=== PATIENT | male | born 1965 | race Caucasian/White ===

== ENCOUNTER 2018-01-30 11:07 | Observation (INO) | payer OTHER ==
--- NOTE | 2018-01-30 12:32 | PDOC ---
History of Present Illness - General Chief Complaint: Nausea/Vomiting Stated Complaint: NAUSEA, FATIGUE, BLOOD IN URINE Time Seen by Provider: 01/30/18 12:32 - History of Present Illness Initial Comments: 01/30/18 12:34 Mr. Villagran is a 52 yo male w/ no pmh who presents for evaluation of single episode of epigastric pain with concurrent shortness of breath on Monday that was relieved by vomiting. Patient reports he has been feeling "lazy" or weak since this occured and subsequently noticed his urine has turned brown. This prompted him to come in for evaluation; he has had no further nausea or vomiting. The patient denies chest pain, headache and dizziness. Denies fever, chills, diarrhea and constipation. Denies dysuria, frequency, and urgency. Allergies: NKDA Past History - Past Medical History Allergies/Adverse Reactions: Allergies Allergy/AdvReac Type Severity Reaction Status Date / Time No Known Allergies Allergy Verified 01/30/18 11:28 Home Medications: Ambulatory Orders NK [No Known Home Medication] 01/30/18 - Suicide/Smoking/Psychosocial Hx Smoking History: Never smoked Hx Alcohol Use: No Drug/Substance Use Hx: No Review of Systems - Review of Systems Comments:: 01/30/18 12:34 GENERAL/CONSTITUTIONAL: No fever or chills. No weakness. HEAD, EYES, EARS, NOSE AND THROAT: No change in vision. No ear pain or discharge. No sore throat. CARDIOVASCULAR: No chest pain or shortness of breath RESPIRATORY: No cough, wheezing, or hemoptysis. GASTROINTESTINAL:+Single episode of pain with nausea/vomiting as described. No diarrhea or constipation. GENITOURINARY: +Brown urine x1 day w/out dysuria, frequency, or other changes. MUSCULOSKELETAL: No joint or muscle swelling or pain. No neck or back pain. SKIN: No rash NEUROLOGIC: No headache, vertigo, loss of consciousness, or change in strength/ sensation. ENDOCRINE: No increased thirst. No abnormal weight change HEMATOLOGIC/LYMPHATIC: No anemia, easy bleeding, or history of blood clots. ALLERGIC/IMMUNOLOGIC: No hives or skin allergy. *Physical Exam - Vital Signs Last Vital Signs Temp Pulse Resp BP Pulse Ox 98 F 76 20 122/77 99 01/30/18 11:25 01/30/18 11:25 01/30/18 11:25 01/30/18 11:25 01/30/18 11:25 - Physical Exam Comments: 01/30/18 12:34 GENERAL: Awake, alert, and fully oriented, in no acute distress HEAD: No signs of trauma, normocephalic, atraumatic EYES: +Sclera icteric. PERRLA, EOMI, conjunctiva clear ENT: Auricles normal inspection, hearing grossly normal, nares patent, oropharynx clear without exudates. Moist mucosa NECK: Normal ROM, supple, no lymphadenopathy, JVD, or masses LUNGS: No distress, speaks full sentences, clear to auscultation bilaterally HEART: Regular rate and rhythm, normal S1 and S2, no murmurs, rubs or gallops, peripheral pulses normal and equal bilaterally. ABDOMEN: Soft, nontender, normoactive bowel sounds. No guarding, no rebound. No masses EXTREMITIES: Normal inspection, Normal range of motion, no edema. No clubbing or cyanosis. NEUROLOGICAL: Cranial nerves II through XII grossly intact. Normal speech, normal gait, no focal sensorimotor deficits SKIN: Warm, Dry, normal turgor, no rashes or lesions noted. ED Treatment Course - LABORATORY CBC & Chemistry Diagram: 01/30/18 13:25 01/30/18 13:25 Medical Decision Making - Medical Decision Making 01/30/18 15:38 Mr. Villagran is a 52 yo male w/ pmh as described who presents for evaluation of vomiting with brown urine. Upon repeat interview patient also relating 20 pound unintentional weight loss. Patient sclera icteric w/ elevated liver enzymes as below. US of RUQ negative for acute process; hepatitis panel pending. Will admit patient for further evaluation. Laboratory Results - last 24 hr 01/30/18 01/30/18 01/30/18 13:25 13:25 13:55 WBC 4.6 RBC 4.13 Hgb 13.6 Hct 40.0 MCV 97.0 H MCH 32.8 MCHC 33.9 RDW 13.5 Plt Count 172 MPV 10.1 Absolute Neuts (auto) 2.7 Neutrophils % 59.0 Lymphocytes % 29.5 Monocytes % 8.9 Eosinophils % 2.0 Basophils % 0.6 Nucleated RBC % 0 Sodium 140 Potassium 3.8 Chloride 105 Carbon Dioxide 29 Anion Gap 6 L BUN 20 H Creatinine 0.8 Creat Clearance w eGFR > 60 Random Glucose 97 Calcium 8.6 Total Bilirubin 2.6 H AST 578 H ALT 1101 H Alkaline Phosphatase 338 H Creatine Kinase Total Protein 8.1 Albumin 3.7 Lipase 92 Urine Color [place]ty Urine Appearance Clear Urine pH 5.0 Ur Specific [place] 1.032 Urine Protein Negative Urine Glucose (UA) Negative Urine Ketones Negative Urine Blood Negative Urine Nitrite Negative Urine Bilirubin 4.0 Urine Urobilinogen 4.0 e.u/dl Ur Leukocyte Esterase Negative 01/30/18 14:13 WBC RBC Hgb Hct MCV MCH MCHC RDW Plt Count MPV Absolute Neuts (auto) Neutrophils % Lymphocytes % Monocytes % Eosinophils % Basophils % Nucleated RBC % Sodium Potassium Chloride Carbon Dioxide Anion Gap BUN Creatinine Creat Clearance w eGFR Random Glucose Calcium Total Bilirubin AST ALT Alkaline Phosphatase Creatine Kinase 45 Total Protein Albumin Lipase Urine Color Urine Appearance Urine pH Ur Specific [place] Urine Protein Urine Glucose (UA) Urine Ketones Urine Blood Urine Nitrite Urine Bilirubin Urine Urobilinogen Ur Leukocyte Esterase *DC/Admit/Observation/Transfer Diagnosis at time of Disposition: Jaundice, Elevated liver enzymes - Discharge Dispostion Decision to Admit order: Yes - Referrals - Patient Instructions - Post Discharge Activity
[2018-01-30] MEDS ORDERED: SODIUM CHLORIDE 1,000 ML IV STA (13:04)
[2018-01-30 13:42] LABS: BASO % 0.6 % (0-2.0); HEMOGLOBIN 13.6 GM/dL (11.7-16.9); LYMPH % 29.5 % (8-40); MCH 32.8 pg (25.7-33.7); MCHC 33.9 g/dl (32.0-35.9); MEAN PLT VOLUME 10.1 fl (7.5-11.1); MONO % 8.9 % (3.8-10.2); PLATELET COUNT 172 K/MM3 (134-434); RBC 4.13 M/mm3 (4.00-5.60); RDW 13.5 % (11.9-15.9); WHITE BLOOD COUNT 4.6 K/mm3 (4.0-10.0)
[2018-01-30 14:07] LABS: URINE APPEARANCE CLEAR; URINE COLOR AMBER; URINE GLUCOSE (UA) NEGATIVE (NEGATIVE); URINE KETONE NEGATIVE (NEGATIVE); URINE LEUK ESTERASE NEGATIVE (NEGATIVE); URINE NITRITE NEGATIVE (NEGATIVE); URINE PROTEIN NEGATIVE (NEGATIVE); URINE UROBILINOGEN 4.0 E.U/dl mg/dL (0.2-1.0)
[2018-01-30 14:11] LABS: ALBUMIN 3.7 g/dl (3.4-5.0); ANION GAP 6 (8-16); BILIRUBIN,TOTAL 2.6 mg/dL (0.2-1.0); BLOOD UREA NITROGEN 20 mg/dL (7-18); CALCIUM 8.6 mg/dL (8.5-10.1); CHLORIDE 105 mmol/L (98-107); CO2 29 mmol/L (21-32); CREATININE 0.8 mg/dL (0.7-1.3); GLUCOSE,RANDOM 97 mg/dL (74-106); LIPASE 92 U/L (73-393); POTASSIUM 3.8 mmol/L (3.5-5.1); SODIUM 140 mmol/L (136-145); TOT PROT 8.1 g/dl (6.4-8.2)
[2018-01-30 14:15] LABS: SGOT/AST 578 U/L (15-37)
[2018-01-30 14:16] LABS: ALK PHOS 338 U/L (45-117)
[2018-01-30 14:17] LABS: SGPT/ALT 1101 U/L (12-78)
--- NOTE | 2018-01-30 14:36 | PDOC ---
Attending Attestation - ED Attending Attestation I have performed the following: I have examined & evaluated the patient, The case was reviewed & discussed with the resident, I agree w/resident's findings & plan - HPI HPI: 01/30/18 16:06 The patient is a 52 year old male, with no significant PMH, on Methadone (60 mg) , who presents to the emergency department with 2 days tea colored urine. The patient states that Monday approx. 1 hour after waking up he experienced epigastric pain and shortness of breath. The patient states he then became nausea and vomited 1x (non bloody, non bilious) which resolved the epigastric abdominal pain. The patient states since 2 days ago he has been continuing to experience the dark colored urine. The patient also reports he has lost approx. 25 lbs in the past 2 months for which he states he has been following a strict diet. The patient denies chest pain, headache and dizziness. Denies fever, chills, diarrhea and constipation. Denies dysuria, frequency, urgency. Allergies: NKA - Physicial Exam PE: 01/30/18 16:07 General: Well appearing, awake and alert, NAD. HEENT: PERRL, EOMI, scleral icterus, moist mucus membranes, no oral lesions, + jaundice over frenulum Neck: neck supple, FROM, no JVD, LAD or masses Lungs: CTAB, normal and even respirations, no respiratory distress Heart: RRR, no murmurs, 2+ peripheral pulses throughout, no peripheral edema Abdomen: soft, NTND, no peritoneal signs. No CVAT Back: nontender, normal inspection and ROM MSK: no edema, MANDUJANO x4, ROM intact. No clubbing or cyanosis. normal bulk and tone. Neuro: alert, oriented appropriately; no focal neurologic deficits. SILT, 5/5 distal and prox strength in all extrem. Skin: warm and well perfused, cap refill <2 sec, dark skin color, no lesions or rash <Jesu Roland - Last Filed: 01/30/18 16:06> - Resident Resident Name: Wei Laura - Medical Decision Making 01/30/18 14:33 52 YOM with jaundice, epigastric pain n/v and tea colored urine x 2 days. 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 no ETOH use or trauma. Vital signs stable and wnl. DDx. asc cholangitis, intra abdominal pass, choledocholithiasis, cholelithiasis , cholecystitis, panc mass/obstructing jaundice. rhabdomyolysis. electrolyte/ metabolic derangements. Labs including CMP and CBC, hepatitis panel. +transaminitis with ALT>AST. urine with elevated urobilinogen levels, no signs of infection. CK normal, so doubt rhabdomyolysis RUQ sono to eval for obstruction and source of jaundice, which is neg for stones or biliary pathology or obstruction. tox panel for tylenol and salicylate levels ordered and pending. hepatitis panel also pending to r/o infectious source of liver inflammation admit for transaminitis and jaundice, otherwise remains well appearing, asymptomatic. 01/30/18 17:06 <Elham Kent - Last Filed: 01/30/18 17:12> Attestations - Attestations 01/30/18 16:07 Documentation prepared by Jesu Roland, acting as medical director/head team physician for Elham Kent MD. <Jesu Roland - Last Filed: 01/30/18 16:06> - Attestations Physician Attestation: 01/30/18 17:09 I reviewed the scribe and residents documented note, including history physical and plan as dictated. Note is prepared under my direction and supervision and agree with the note in its entirety. <Elham Kent - Last Filed: 01/30/18 17:12>
[2018-01-30 17:47] LABS: INR 1.14 (0.82-1.09); PROTHROMBIN TIME (PATIENT) 12.9 SEC (9.7-13.0)
[2018-01-30] MEDS ORDERED: SODIUM CHLORIDE 1,000 ML IV SCH (18:15)
--- NOTE | 2018-01-30 19:28 | HP ---
CHIEF COMPLAINT: dark urine since Monday PCP: Dr. 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 Upon first episode of dark urine on Monday, pt was complaining of localized epigastric pain with 1 episode of nonbloody vomiting. He admits to never having these symptoms before. Since that time, his dark urine persisted, but denies any recurring episodes of epigastric pain. He also denies fever/chills, nausea, headaches/dizziness, abnormal bleeding/bruising, skin changes, vision changes, or recent sickness. He admits to intentional weight loss of 25 lbs over the past 2.5 months. ER course was notable for: (1) Abd U/S: (-) for gallstones, Hep panel/Acetaminophen, Salicylate panel pending (2) AST/ALT: 578/1101 (3) CXR, ECG ordered Recent Travel: Denies recent travel PAST MEDICAL HISTORY: heroine addiction currently being treated at Methadone (60 mg) clinic in the [place] +hx of Hepatitis B, treated 8 years ago PAST SURGICAL HISTORY: Denies past surgical history Social History: Smoking: Admits to smoking cigars Alcohol: Denies alcohol use Drugs: Hx of heroine abuse Pt's work involves fixing houses. He is currently living with his mother at home. He has 1 son (32). Family History: Father, 78, HTN Mother, 78, Heart disease Allergies No Known Allergies Allergy (Verified 01/30/18 11:28) HOME MEDICATIONS: Home Medications Medication Instructions Recorded NK [No Known Home Medication] 01/30/18 REVIEW OF SYSTEMS CONSTITUTIONAL: Denies fever/chills, nausea/vomiting, admits to intentional weight loss of 25 lbs, denies headaches/dizziness CARDIOVASCULAR: Denies chest pain, lightheadedness, irregular heart rate RESPIRATORY: Denies shortness of breath, cough GASTROINTESTINAL: Admits to constipation, Denies diarrhea, abdominal pain or masses GENITOURINARY: Admits to dark urine, Denies pain during urination, urinary frequency MUSCULOSKELETAL: Admits to pain in knees, denies swelling in extremities SKIN: Denies skin rash, lesions HEMATOLOGIC/IMMUNOLOGIC: Denies easy bleeding/bruising, recent infection NEUROLOGIC: Denies dizziness, bladder or bowel incontinence PHYSICAL EXAMINATION Vital Signs - 24 hr 01/30/18 11:25 Temperature 98 F Pulse Rate 76 Respiratory 20 Rate Blood Pressure 122/77 O2 Sat by Pulse 99 Oximetry (%) GENERAL: NAD. AAOx3. HEENT: AT/NC. Non-icteric sclera. Neck supple, no thyromegaly/LAD. LUNGS: CTA B/L. No wheezes/rhonchi/rales appreciated. Symmetric chest rise. HEART: RRR. Normal S1, S2. No murmurs, rubs, gallops appreciated. ABDOMEN: Soft NT/ND. normoactive BS in all 4 Q's. No masses or abdominal bruits noted. MUSCULOSKELETAL: Limited ROM in L arm. 5/5 muscle strength in U/L B/L extremities. UPPER EXTREMITIES: 2+ pulses, warm, well-perfused. No cyanosis. No clubbing. No peripheral edema. LOWER EXTREMITIES: 2+ pulses, warm, well-perfused. No calf tenderness. No peripheral edema. NEUROLOGICAL: Normal Speech, normal gait. PSYCHIATRIC: Cooperative. Good eye contact. Appropriate mood and affect. SKIN: warm, dry. No rashes or lesions noted. Laboratory Results - last 24 hr 01/30/18 01/30/18 01/30/18 13:25 13:25 13:55 WBC 4.6 RBC 4.13 Hgb 13.6 Hct 40.0 MCV 97.0 H MCH 32.8 MCHC 33.9 RDW 13.5 Plt Count 172 MPV 10.1 Absolute Neuts (auto) 2.7 Neutrophils % 59.0 Lymphocytes % 29.5 Monocytes % 8.9 Eosinophils % 2.0 Basophils % 0.6 Nucleated RBC % 0 PT with INR INR Sodium 140 Potassium 3.8 Chloride 105 Carbon Dioxide 29 Anion Gap 6 L BUN 20 H Creatinine 0.8 Creat Clearance w eGFR > 60 Random Glucose 97 Calcium 8.6 Total Bilirubin 2.6 H Direct Bilirubin AST 578 H ALT 1101 H Alkaline Phosphatase 338 H Creatine Kinase Total Protein 8.1 Albumin 3.7 Lipase 92 Urine Color [place] Urine Appearance Clear Urine pH 5.0 Ur Specific [place] 1.032 Urine Protein Negative Urine Glucose (UA) Negative Urine Ketones Negative Urine Blood Negative Urine Nitrite Negative Urine Bilirubin 4.0 Urine Urobilinogen 4.0 e.u/dl Ur Leukocyte Esterase Negative 01/30/18 01/30/18 01/30/18 14:13 17:14 17:14 WBC RBC Hgb Hct MCV MCH MCHC RDW Plt Count MPV Absolute Neuts (auto) Neutrophils % Lymphocytes % Monocytes % Eosinophils % Basophils % Nucleated RBC % PT with INR 12.90 INR 1.14 Sodium Potassium Chloride Carbon Dioxide Anion Gap BUN Creatinine Creat Clearance w eGFR Random Glucose Calcium Total Bilirubin Direct Bilirubin 1.8 H AST ALT Alkaline Phosphatase Creatine Kinase 45 Total Protein Albumin Lipase Urine Color Urine Appearance Urine pH Ur Specific [place] Urine Protein Urine Glucose (UA) Urine Ketones Urine Blood Urine Nitrite Urine Bilirubin Urine Urobilinogen Ur Leukocyte Esterase Abd U/S: Contracted GB w/o evidence of calculi. No evidence of biliary ductal dilatation or acute pathology. U/A: +carline urine ASSESSMENT/PLAN: 52M w/ pmhx heroine abuse (currently being treated at a Methadone clinic) presents today with tea-colored urine being admitted for workup of transaminitis. #transaminitis 2/2 possible methadone hepatotoxicity vs cholelithiasis vs hepatitis - ALT 578, ALT 1101, Alk Phos 338 - Pt admits going to a methadone clinic for the past 9 years; possibly liver injury due to long-term tx of methadone - Abd U/S negative for evidence of gallstone in GB w/ -Teague sign, -abd pain, unlikely cholelithiasis; F/u GI consult for further workup and imaging if needed - hepatic panel pending given hx of Hepatitis B - Acetaminophen and salicylate panel pending - CXR ordered by ED to rule out infectious source - check CMP and GGT in AM #hyperbilirubinemia 2/2 possible hepatic or biliary obstruction; Pt clinically asymptomatic - f/u GI consult for further workup - recheck T Bili and Direct Bili in AM #DVT ppx - Heparin 5000U SQ Q8 FEN - NS 1000cc 1 bag - recheck electrolytes in AM dispo - monitor on obs Visit type - Emergency Visit Emergency Visit: Yes ED Registration Date: 01/30/18 Care time: The patient presented to the Emergency Department on the above date and was hospitalized for further evaluation of their emergent condition. - New Patient This patient is new to me today: Yes Date on this admission: 01/30/18 - Critical Care Critical Care patient: No Hospitalist Screening - Colonoscopy Questionnaire Colonoscopy Questionnaire: Colonoscopy Questionnaire - Patient: 50 - 75 years old and never had a screening colonoscopy: Unknown History of colon or rectal polyps, or CA: Unknown History of IBD, Crohn's disease or UC: Unknown History of abdominal radiation therapy as a child: Unknown - Relative: 1 with colon or rectal CA, or polyps at age 60 or younger: Unknown Colon or rectal CA diagnosed at age 45 or younger: Unknown Multiple relatives with colon or rectal CA: Unknown - Outcome: Screening Result: Negative Screen
[2018-01-30 21:38] LABS: ACETAMINOPHEN <2.0 ug/mL; SALICYLATE <1.7 mg/dL
--- NOTE | 2018-01-30 21:41 | PN ---
Teaching Attending Note Name of Resident: Marleny Brooks ATTENDING PHYSICIAN STATEMENT I saw and evaluated the patient. I reviewed the resident's note and discussed the case with the resident. I agree with the resident's findings and plan as documented. SUBJECTIVE: Patient is comfortbale , denies having any pain. His urine is tea colored as per patient . Denies any drinking. OBJECTIVE: Vital Signs Temperature 98 F 01/30/18 11:25 Pulse Rate 76 01/30/18 11:25 Respiratory Rate 20 01/30/18 11:25 Blood Pressure 122/77 01/30/18 11:25 O2 Sat by Pulse Oximetry (%) 99 01/30/18 11:25 CBCD WBC 4.6 K/mm3 (4.0-10.0) 01/30/18 13:25 RBC 4.13 M/mm3 (4.00-5.60) 01/30/18 13:25 Hgb 13.6 GM/dL (11.7-16.9) 01/30/18 13:25 Hct 40.0 % (35.4-49) 01/30/18 13:25 MCV 97.0 fl (80-96) H 01/30/18 13:25 MCHC 33.9 g/dl (32.0-35.9) 01/30/18 13:25 RDW 13.5 % (11.9-15.9) 01/30/18 13:25 Plt Count 172 K/MM3 (134-434) 01/30/18 13:25 MPV 10.1 fl (7.5-11.1) 01/30/18 13:25 CMP Sodium 140 mmol/L (136-145) 01/30/18 13:25 Potassium 3.8 mmol/L (3.5-5.1) 01/30/18 13:25 Chloride 105 mmol/L (98-107) 01/30/18 13:25 Carbon Dioxide 29 mmol/L (21-32) 01/30/18 13:25 Anion Gap 6 (8-16) L 01/30/18 13:25 BUN 20 mg/dL (7-18) H 01/30/18 13:25 Creatinine 0.8 mg/dL (0.7-1.3) 01/30/18 13:25 Creat Clearance w eGFR > 60 (>60) 01/30/18 13:25 Random Glucose 97 mg/dL (74-106) 01/30/18 13:25 Calcium 8.6 mg/dL (8.5-10.1) 01/30/18 13:25 Total Bilirubin 2.6 mg/dL (0.2-1.0) H 01/30/18 13:25 AST 578 U/L (15-37) H 01/30/18 13:25 ALT 1101 U/L (12-78) H 01/30/18 13:25 Alkaline Phosphatase 338 U/L (45-117) H 01/30/18 13:25 Total Protein 8.1 g/dl (6.4-8.2) 01/30/18 13:25 Albumin 3.7 g/dl (3.4-5.0) 01/30/18 13:25 CARDIAC ENZYMES Creatine Kinase 45 IU/L (39-308) 01/30/18 14:13 Current Medications Generic Name Dose Route Start Last Admin Trade Name Freq PRN Reason Stop Dose Admin Heparin Sodium (Porcine) 5,000 unit 01/31/18 02:00 Heparin - SQ Q8H-IV ANDRE Sodium Chloride 1,000 mls @ 100 mls/hr 01/30/18 18:15 01/30/18 19:15 Normal Saline - IV 01/31/18 04:14 100 mls/hr ASDIR ANDRE Administration Home Medications Medication Instructions Recorded NK [No Known Home Medication] 01/30/18 PE: No abdominal pain positive for Jaundice rest of PE per the resident's note ASSESSMENT AND PLAN: 52yo male with pmhx of heroine abuse goes to Methadone clinic presents today with tea-colored urine due to Hyperbilirubinia #Acute transaminitis with elevated bilirubin can't r/o hepatitis acute , possible methadone hepatotoxicity vs cholelithiasis, will also check aspirin and tylenol level - ALT 578, ALT 1101, Alk Phos 338 , Abd U/S negative for evidence of gallstone in GB. GI consult appreciated, hepatic panel pending given hx of Hepatitis B check GGT and trend the levels. #DVT ppx: Heparin 5000U SQ Q8 Obs
--- NOTE | 2018-01-30 22:06 | CON.GI ---
Consult Consult Specialty:: GI Referred by:: Hospitalist Service Reason for Consultation:: Abnormal liver chemistries - History of Present Illness Chief Complaint: Abdominal pain History of Present Illness: 52M admitted fpor evaluation of abdominal pain and dark urine. he states that monday morning he herrera a [employer] and soon after developed intesnse epigastric pain. There was associated nausea. He began belching and vpomited, alleviating the pain somewhat. the pain improved yesterday however his urine remained dark, prompting his ER. Triage vitals revealed him to be tachycardic, afebrile and hypertensive. He was noted to have an elevated WBC as well as leevated transaminases / ALP and bilirubin. Abdominal US revealed a contracted gallbladder without evidence of biliary tract disease and hepatopedal flow through the main portal vein. He denies similar episodes in the past. He believes that he was treated for hepatitis B 8 years ago and otherwise denies other known liver disease, family history of liver disease or alcohol use. He denies fevers/chills. he has never had a colonoscopy. - History Source History Provided By: Patient, Medical Record Limitations to Obtaining History: No Limitations - Past Medical History Hepatobiliary: Yes: Hepatitis B (? treated 2009) - Past Surgical History Additional Surgical History: Denies - Alcohol/Substance Use Hx Alcohol Use: No History of Substance Use: reports: Heroin (Intranasal heroin, no IVDA) - Smoking History Smoking history: Never smoked Have you smoked in the past 12 months: No - Social History Usual Living Arrangement: Alone ADL: Independent Occupation: Rn Tele Place of : [facility] History of Recent Travel: No Home Medications - Allergies Allergies/Adverse Reactions: Allergies Allergy/AdvReac Type Severity Reaction Status Date / Time No Known Allergies Allergy Verified 01/30/18 11:28 - Home Medications Home Medications: Ambulatory Orders NK [No Known Home Medication] 01/30/18 Family Disease History - Family Disease History Family Disease History: Other: Father (Alive: healthy), Mother (Alive: multiple medical problems), Brother (1 from overdose, 2 alive and healthy), Son (1, healthy) Other Family History: No family history of colorectal cancer or other GI malignancy. no family history of liver disease Review of Systems - Review of Systems Constitutional: denies: Chills Cardiovascular: denies: Chest Pain Respiratory: denies: SOB Gastrointestinal: reports: Abdominal Pain, Indigestion, Nausea, Vomiting. denies: Constipation, Diarrhea Physical Exam-GI Vital Signs: Vital Signs Temperature 98 F 01/30/18 11:25 Pulse Rate 76 01/30/18 11:25 Respiratory Rate 20 01/30/18 11:25 Blood Pressure 122/77 01/30/18 11:25 O2 Sat by Pulse Oximetry (%) 99 01/30/18 11:25 Constitutional: Yes: Calm Eyes: No: Sclera Icterus Cardiovascular: Yes: Regular Rate and Rhythm. No: Murmur Respiratory: Yes: CTA Bilaterally Gastrointestinal Inspection: No: Distention ...Auscultate: Yes: Normoactive Bowel Sounds ...Palpate: No: Hepatomegaly, Splenomegaly, Tenderness ...Percussion: No: Tympanitic Edema: No (No LE edema) Neurological: Yes: Alert, Oriented Labs: CBC, BMP 01/30/18 13:25 01/30/18 13:25 INR, PTT INR 1.14 (0.82-1.09) 01/30/18 17:14 Imaging - Results Ultrasound: Report Reviewed Problem List - Problems (1) Elevated liver enzymes Assessment/Plan: Post prandial epigastric pain in conjunction with mixed hepatocellular / cholestatic liver dysfunction favors biliary source such as passed or retained CBD stone/sludge. Plan would be as follows: NPO IV Hydration Empiric antibiotics for now: Ordered zosyn Ordered triple phase MRI of the abdomen with and without contrast with MRCP for further evaluation of the liver and bilary tract Monitor LFTs / coags Acute hepatitis panel is pending Discussed the possibility of a need for ERCP with Mr. Villagran to further evaluate biliary tract. Discussed potential risks of the procedure like but not limited to bleeding, perforation requiring surgery to repair, infection, sedation medication effects, pancreatitis, all of which could be potentially life threatening. he has agreed to the procedure if it was felt to be medically necessary Code(s): R74.8 - ABNORMAL LEVELS OF OTHER SERUM ENZYMES
[2018-01-30] MEDS ORDERED: PIPERACILLIN/TAZOB 3.375 GM 3.375 GM in DEXTROSE 5%-WATER - 50 ML IVPB SCH (22:15)
[2018-01-30] MEDS ORDERED: PIPERACILLIN/TAZOB 3.375 GM 3.375 GM/50 ML BAG IVPB ONE (22:35)
[2018-01-30] MEDS: PIPERACILLIN/TAZOB 3.375 GM 3.375 GM in DEXTROSE 5%-WATER - 50 ML IVPB SCH (22:45)
[2018-01-31 01:22] VITALS: BMI 27.0
[2018-01-31] MEDS: HEPARIN NA (PORCINE) 5,000 UNITS/ML 1ML VIAL SQ SCH ×4 (03:00→18:08)
[2018-01-31] MEDS ORDERED: DEXTROSE 5%-WATER - 50 ML IVPB ONE ×2 (03:37→09:46)
[2018-01-31] MEDS ORDERED: PIPERACILLIN/TAZOBACTAM 3.375 GM VIAL IVPB ONE ×3 (03:37→17:55)
[2018-01-31] MEDS: PIPERACILLIN/TAZOB 3.375 GM 3.375 GM in DEXTROSE 5%-WATER - 50 ML IVPB SCH ×3 (03:46→18:04)
[2018-01-31 06:16] LABS: HEP.C VIRUS AB 0.3 s/co ratio (0.0-0.9)
[2018-01-31 07:56] LABS: CHLORIDE 106 mmol/L (98-107); GAMMA GLUTAMYL TRANSPEPTIDASE 303 U/L (5-85); POTASSIUM 4.3 mmol/L (3.5-5.1); SODIUM 140 mmol/L (136-145)
[2018-01-31 07:57] LABS: BASO % 0.4 % (0-2.0); EOS % 2.7 % (0-4.5); HEMATOCRIT 34.3 % (35.4-49); HEMOGLOBIN 11.8 GM/dL (11.7-16.9); LYMPH % 27.7 % (8-40); MCH 33.3 pg (25.7-33.7); MCHC 34.4 g/dl (32.0-35.9); MEAN CELL VOLUME 96.8 fl (80-96); MEAN PLT VOLUME 10.2 fl (7.5-11.1); NEUT % 57.2 % (42.8-82.8); PLATELET COUNT 137 K/MM3 (134-434); RBC 3.55 M/mm3 (4.00-5.60); RDW 13.5 % (11.9-15.9); WHITE BLOOD COUNT 4.5 K/mm3 (4.0-10.0)
[2018-01-31 08:05] LABS: ALBUMIN 3.1 g/dl (3.4-5.0); ALK PHOS 261 U/L (45-117); ANION GAP 5 (8-16); BILIRUBIN,DIRECT 1.3 mg/dL (0.0-0.2); BILIRUBIN,TOTAL 1.4 mg/dL (0.2-1.0); BLOOD UREA NITROGEN 14 mg/dL (7-18); CALCIUM 8.5 mg/dL (8.5-10.1); CO2 29 mmol/L (21-32); CREATININE 0.8 mg/dL (0.7-1.3); GLUCOSE,RANDOM 91 mg/dL (74-106); MAGNESIUM 1.9 mg/dL (1.8-2.4); PHOSPHOROUS 3.5 mg/dL (2.5-4.9); SGOT/AST 269 U/L (15-37); TOT PROT 6.7 g/dl (6.4-8.2)
[2018-01-31 08:18] LABS: SGPT/ALT 724 U/L (12-78)
--- NOTE | 2018-01-31 08:23 | PN ---
Progress Note (short form) - Note Progress Note: ID Full note dictated Selected Entries 01/31/18 05:58 Temperature 98.4 F Pulse Rate 56 L Respiratory 20 Rate Blood Pressure 139/79 Laboratory Tests 01/30/18 01/30/18 01/31/18 13:25 14:13 06:30 WBC 4.6 Hgb 13.6 Hct 40.0 Plt Count 172 Direct Bilirubin 1.3 H D GGT 303 H ALT 724 H D Alkaline Phosphatase 261 H D Hep B Core IgM Ab Negative Hepatitis C Antibody 0.3 Assessment Suspect passage of biliary stone Plan Complete Viral hepatitis panel Do not see an indication for antibiotics at this time Teri FUENTES Problem List - Problems (1) Biliary colic Code(s): K80.50 - CALCULUS OF BILE DUCT W/O CHOLANGITIS OR CHOLECYST W/O OBST (2) Elevated liver enzymes Code(s): R74.8 - ABNORMAL LEVELS OF OTHER SERUM ENZYMES
--- NOTE | 2018-01-31 08:50 | CONS ---
DATE OF CONSULTATION: DATE OF DICTATION: 01/31/2018 This is a 52-year-old male who presented with sudden onset of epigastric pain lasting several minutes and associated with the presence and passage of dark-colored urine. The pain was intense in severity, and he experienced some associated vomiting without any fever or chills. He came to the emergency room and was noted to be afebrile, hypertensive, and tachycardic. His white cell count was also noted to be elevated, and his liver enzymes were markedly elevated with a cholestatic picture. Abdominal sonogram revealed a contracted gallbladder with no evidence of biliary disease. The patient has a history of methadone maintenance and former IVDA, but he has not been on any illicit drugs for many years. He has no history of recent travel. He is a [place] immigrant living in the [place] for many years with his . HIV status is unknown. He has been seen in consultation by Dr. Quintana, was empirically given piperacillin/tazobactam, though at the current time he has no fever, a normal white count, and no abdominal pain. Thus far, viral serologies have been negative for viral hepatitis, but the panel is incomplete at this time. He mentioned possibly being treated for hepatitis B, but on further questioning, I suspect that what he received was 6 months of INH for latent TB. SOCIAL HISTORY: Never smoked, , says HIV negative. Occupation is maintenance construction. FAMILY HISTORY: Noncontributory. REVIEW OF SYSTEMS: Respiratory: No cough, shortness of breath. Cardiac: No chest pain, palpitations, syncope. Gastrointestinal: No nausea, vomiting, diarrhea. Genitourinary: No dysuria, hematuria, frequency. PHYSICAL EXAMINATION: General: An alert, pleasant male, no acute distress. Vital Signs: Temperature 98.5, pulse 56, blood pressure 139/79, respirations 20. Neck: Supple, without adenopathy. Lungs: Clear to P&A. Heart: S1, S2, regular rhythm without audible murmur. Abdomen: Soft, nontender, without hepatosplenomegaly. No abdominal tenderness. Extremities: No clubbing, cyanosis, or edema. LABORATORY: The white count 4.6, hemoglobin 13.6, platelets of 172. BUN 14, creatinine 0.8, bilirubin 1.3. Gamma 303. AST 269, ALT 724, alkaline phosphatase 261, albumin 3.1. Urinalysis negative for leukocyte esterase. ASSESSMENT: A 52-year-old male, former heroin use, on methadone for many years, no active drug use at this time, presents with sudden onset of epigastric pain which seems most consistent with passage of a biliary stone. He has a cholestatic picture on his liver enzymes and has been seen by gastroenterology with an MRCP pending. At this point he is afebrile with a normal white count, no abdominal pain. I do not see a reason for systemic antibiotics at the current time but will defer to gastroenterology in this regard. Hepatitis serology negative for hepatitis A IgM, negative hepatitis surface antigen for hepatitis B, and hepatitis core IgM negative. Hepatitis C negative. From Infectious disease standpoint nothing further at this time other than HIV testing for completeness, though I imagine this is done on a regular basis in the methadone clinic. JORJE SILVA M.D. [id number]
--- NOTE | 2018-01-31 11:42 | EKG ---
Test Reason : Blood Pressure : / mmHG Vent. Rate : 066 BPM Atrial Rate : 066 BPM P-R Int : 196 ms QRS Dur : 094 ms QT Int : 436 ms P-R-T Axes : 027 027 029 degrees QTc Int : 457 ms NORMAL SINUS RHYTHM NORMAL ECG NO PREVIOUS ECGS AVAILABLE Confirmed by JEAN PIERRE FUENTES, ROBERT ([id number]) on 01/31/2018 11:41:54 AM Referred By: Confirmed By:ROBERT GREENFIELD MD
--- NOTE | 2018-01-31 18:14 | PN ---
Physical Exam: SUBJECTIVE: Patient seen and examined at bedside. No acute events overnight. Denies fever/chills, abdominal pain. OBJECTIVE: Vital Signs Period Temp Pulse Resp BP Sys/Geiger Pulse Ox Last 24 Hr 97.5 F-98.4 F 56-62 19-20 133-141/79-81 98-98 GENERAL: NAD. AAOx3. Not jaundice. HEENT: AT/NC. Non-icteric sclera. Neck supple, no thyromegaly/LAD. LUNGS: CTA B/L. No wheezes/rhonchi/rales appreciated. Symmetric chest rise. HEART: RRR. Normal S1, S2. No murmurs, rubs, gallops appreciated. ABDOMEN: Soft NT/ND. normoactive BS in all 4 Q's. No masses or abdominal bruits noted. MUSCULOSKELETAL: Limited ROM in L arm. 5/5 muscle strength in U/L B/L extremities. UPPER EXTREMITIES: 2+ pulses, warm, well-perfused. No cyanosis. No clubbing. No peripheral edema. LOWER EXTREMITIES: 2+ pulses, warm, well-perfused. No calf tenderness. No peripheral edema. NEUROLOGICAL: Normal Speech, normal gait. PSYCHIATRIC: Cooperative. Good eye contact. Appropriate mood and affect. SKIN: warm, dry. No rashes or lesions noted. Laboratory Results - last 24 hr 01/30/18 01/30/18 01/31/18 14:13 17:14 06:30 WBC 4.5 RBC 3.55 L Hgb 11.8 Hct 34.3 L MCV 96.8 H MCH 33.3 MCHC 34.4 RDW 13.5 Plt Count 137 D MPV 10.2 Absolute Neuts (auto) 2.5 Neutrophils % 57.2 Lymphocytes % 27.7 Monocytes % 12.0 H Eosinophils % 2.7 Basophils % 0.4 Nucleated RBC % 0 Sodium Potassium Chloride Carbon Dioxide Anion Gap BUN Creatinine Creat Clearance w eGFR Random Glucose Calcium Phosphorus Magnesium Total Bilirubin Direct Bilirubin GGT AST ALT Alkaline Phosphatase Total Protein Albumin Salicylates <1.7 Acetaminophen <2.0 Hepatitis A IgM Ab Negative Hep Bs Antigen Negative Hep B Core IgM Ab Negative Hepatitis C Antibody 0.3 HIV 1&2 Antibody Screen HIV P24 Antigen 01/31/18 01/31/18 01/31/18 06:30 06:30 10:05 WBC RBC Hgb Hct MCV MCH MCHC RDW Plt Count MPV Absolute Neuts (auto) Neutrophils % Lymphocytes % Monocytes % Eosinophils % Basophils % Nucleated RBC % Sodium 140 Potassium 4.3 Chloride 106 Carbon Dioxide 29 Anion Gap 5 L BUN 14 Creatinine 0.8 Creat Clearance w eGFR > 60 Random Glucose 91 Calcium 8.5 Phosphorus 3.5 Magnesium 1.9 Total Bilirubin 1.4 H Cancelled Direct Bilirubin 1.3 H D Cancelled GGT 303 H AST 269 H D Cancelled ALT 724 H D Cancelled Alkaline Phosphatase 261 H D Cancelled Total Protein 6.7 Cancelled Albumin 3.1 L Cancelled Salicylates Acetaminophen Hepatitis A IgM Ab Hep Bs Antigen Hep B Core IgM Ab Hepatitis C Antibody HIV 1&2 Antibody Screen Negative HIV P24 Antigen Negative Active Medications Generic Name Dose Route Start Last Admin Trade Name Freq PRN Reason Stop Dose Admin Heparin Sodium (Porcine) 5,000 unit 01/31/18 02:00 01/31/18 18:08 Heparin - SQ Not Given Q8H-IV ANDRE Piperacillin Sod/Tazobactam 50 mls @ 100 mls/hr 01/30/18 22:30 01/31/18 18:04 Sod 3.375 gm/ Dextrose IVPB 100 mls/hr Q8H-IV ANDRE Administration Methadone HCl 60 mg 02/01/18 06:00 Dolophine - PO 02/01/18 06:01 ONCE ONE ASSESSMENT/PLAN: Abd U/S: Contracted GB w/o evidence of calculi. No evidence of biliary ductal dilatation or acute pathology. U/A: +carline urine MRI abd: Few tiny gallstones at dome of GB. No evidence of cholecystitis. Elevated R hemidiaphragm of unknown etiology. ASSESSMENT/PLAN: 52M w/ pmhx heroine abuse (currently being treated at a Methadone clinic) presents today with tea-colored urine being admitted for workup of transaminitis. #transaminitis most likely 2/2 passage of gallstone; Pt clinically improving, denies vomiting, urine color is now yellow - AST/ALT/AlkPhos trending down, patient is symptomatically improving - Abd U/S negative for evidence of gallstone in GB w/ -Teague sign, -abd pain; - As per ID, IV Abx d/c'd, not needed - As per GI, adv to CLD; monitor if pt tolerates diet - hepatic panel pending given hx of Hepatitis B - (-) acetaminophen and salicylate panel #hx of heroin abuse; currently attending [facility] - pt currently on methadone 60 mg - will call clinic to confirm dosage #DVT ppx - Heparin 5000U SQ Q8 FEN - No fluids given - recheck electrolytes in AM - CLD dispo - monitor on obs Visit type - Emergency Visit Emergency Visit: No - New Patient This patient is new to me today: No - Critical Care Critical Care patient: No
--- NOTE | 2018-01-31 19:23 | PN ---
GI Progress Note Subjective: No acute events No abdominal pain Had clear liquid diet tonight, no abdominal pain Mr. Hureta said that after thinking about things, he may have had a couple of similar but less severe episodes in the past - Objective Vital Signs: Vital Signs Temperature 97.6 F 01/31/18 18:00 Pulse Rate 54 L 01/31/18 18:00 Respiratory Rate 20 01/31/18 18:00 Blood Pressure 131/79 01/31/18 18:00 O2 Sat by Pulse Oximetry (%) 98 01/31/18 09:00 Constitutional: Calm Eyes: No: Sclera Icterus Cardiovascular: Yes: Regular Rate and Rhythm Respiratory: Yes: CTA Bilaterally Gastrointestinal Inspection: No: Distention ...Auscultate: Yes: Normoactive Bowel Sounds ...Palpate: No: Hepatomegaly, Splenomegaly, Tenderness ...Percussion: No: Tympanitic Edema: No (No LE edema) Neurological: Yes: Alert, Oriented Labs: CBC, BMP 01/31/18 06:30 01/31/18 06:30 INR, PTT INR 1.14 (0.82-1.09) 01/30/18 17:14 Hepatic Panel Total Bilirubin 1.4 mg/dL (0.2-1.0) H 01/31/18 06:30 Direct Bilirubin 1.3 mg/dL (0.0-0.2) H D 01/31/18 06:30 AST 269 U/L (15-37) H D 01/31/18 06:30 ALT 724 U/L (12-78) H D 01/31/18 06:30 Alkaline Phosphatase 261 U/L (45-117) H D 01/31/18 06:30 Albumin 3.1 g/dl (3.4-5.0) L 01/31/18 06:30 - ....Imaging MRI: Report Reviewed (distended GB with small stones at dome of gallbladder, prox. CHD dilated, distal CHD prox to cystic duct insertion slightly prominent, CBD distal to cystic duct insertion normal caliber, mild intrahepatic biliary ductal dilatation. A choledochocoele / distal stricture could not be excluded.) Problem List - Problems (1) Elevated liver enzymes Code(s): R74.8 - ABNORMAL LEVELS OF OTHER SERUM ENZYMES
--- NOTE | 2018-01-31 19:35 | PN ---
Teaching Attending Note Name of Resident: Marleny Brooks ATTENDING PHYSICIAN STATEMENT I saw and evaluated the patient. I reviewed the resident's note and discussed the case with the resident. I agree with the resident's findings and plan as documented. SUBJECTIVE: No fever or chills. feels better, No abd pain . clear urine today OBJECTIVE: NAD, slightly icteric sclera . Cv : RRR Lungs: CTAB ext : no edema Abd: soft, Nt, ND, NL BS ASSESSMENT AND PLAN: 52 y/o man with h/o heroin abuse on methadone treatment who presented with abd painand dark urine and was found to have elevated LFTs and jaundice 1- transaminitis : likely p[assed a stone. MRI reviewed. LFts improved and pain resolved. urine color is yellow again., - appreciate GI input - clears - for ERCP - follow surgical Recs . - No evidence of cholecystitis or sepsis . No abx 2- h/o heroin abuse. cpnt methadone
--- NOTE | 2018-01-31 21:11 | CONSULT ---
- Consultation REQUESTING PROVIDER: Tatiana CONSULT REQUEST: We have been asked to surgically evaluate this patient for possible symptomatic biliary tract disease. PCP:Blossom Simpson HISTORY OF PRESENT ILLNESS: Suuden onset of non post prandial epigastric pain w / nausea and vomiting and later dark urine; he came to the ER for evaluation. Workup and imaging studies and Consults to date reviewed; he has not had any pain since his intial presentation and is tolerating clear liquids; he has NOC. PMHx: ? hepatitis; drug use PSHx: none Home Medications Medication Instructions Recorded NK [No Known Home Medication] 01/30/18 Allergies Allergy/AdvReac Type Severity Reaction Status Date / Time No Known Allergies Allergy Verified 01/30/18 11:28 PHYSICAL EXAM: GENERAL: Awake, alert, and fully oriented, in no acute distress. HEAD: Normal with no signs of trauma. EYES:, sclera anicteric, conjunctiva clear. NECK: Normal ROM, supple without lymphadenopathy, JVD, or masses. ABDOMEN: Soft, nontender, not distended, normoactive bowel sounds, no guarding, no rebound, no masses. No organomegaly. No hernias MUSCULOSKELETAL: Normal ROM at all joints. No bony deformities or tenderness. No CVA tenderness. UPPER EXTREMITIES: 2+ pulses, warm, well-perfused. No cyanosis. Cap refill <2 seconds. No peripheral edema. LOWER EXTREMITIES: 2+ pulses, warm, well-perfused. No calf tenderness. No peripheral edema. NEUROLOGICAL: Normal speech, gait not observed. PSYCH: Cooperative. Good eye contact. Appropriate mood and affect. SKIN: Warm, dry, normal turgor, no rashes or lesions noted. Vital Signs Temperature 97.6 F 01/31/18 18:00 Pulse Rate 54 L 01/31/18 18:00 Respiratory Rate 20 01/31/18 18:00 Blood Pressure 131/79 01/31/18 18:00 O2 Sat by Pulse Oximetry (%) 98 01/31/18 09:00 Lab Results WBC 4.5 K/mm3 (4.0-10.0) 01/31/18 06:30 RBC 3.55 M/mm3 (4.00-5.60) L 01/31/18 06:30 Hgb 11.8 GM/dL (11.7-16.9) 01/31/18 06:30 Hct 34.3 % (35.4-49) L 01/31/18 06:30 MCV 96.8 fl (80-96) H 01/31/18 06:30 MCHC 34.4 g/dl (32.0-35.9) 01/31/18 06:30 RDW 13.5 % (11.9-15.9) 01/31/18 06:30 Plt Count 137 K/MM3 (134-434) D 01/31/18 06:30 Sodium 140 mmol/L (136-145) 01/31/18 06:30 Potassium 4.3 mmol/L (3.5-5.1) 01/31/18 06:30 Chloride 106 mmol/L (98-107) 01/31/18 06:30 Carbon Dioxide 29 mmol/L (21-32) 01/31/18 06:30 Anion Gap 5 (8-16) L 01/31/18 06:30 BUN 14 mg/dL (7-18) 01/31/18 06:30 Creatinine 0.8 mg/dL (0.7-1.3) 01/31/18 06:30 Random Glucose 91 mg/dL (74-106) 01/31/18 06:30 Calcium 8.5 mg/dL (8.5-10.1) 01/31/18 06:30 INR 1.14 (0.82-1.09) 01/30/18 17:14 w/u to date reviewed; LFT's and bili remain elevated though trending down; imaging studies reviewed IMP: elevated LFT's and bili and abnormal biliary tract imaging PLAN: Agree w/tx. plan to date h/e i believe ERCP is indicated to r/o entities in the bile duct aside from stones; i.e. stricture at the sphincter as pointed out in the MRCP report; IVAB's are being used for ???; will f/u. Bernardino Schmid MD FACS
[2018-02-01] MEDS: HEPARIN NA (PORCINE) 5,000 UNITS/ML 1ML VIAL SQ SCH ×2 (01:47→11:45)
[2018-02-01] MEDS ORDERED: METHADONE HCL 10 MG TABLET PO ONE (06:00)
[2018-02-01 07:59] LABS: BASO % 0.5 % (0-2.0); EOS % 1.4 % (0-4.5); HEMATOCRIT 39.6 % (35.4-49); HEMOGLOBIN 13.5 GM/dL (11.7-16.9); LYMPH % 22.4 % (8-40); MCHC 34.1 g/dl (32.0-35.9); MEAN CELL VOLUME 96.8 fl (80-96); MEAN PLT VOLUME 10.2 fl (7.5-11.1); MONO % 7.1 % (3.8-10.2); NEUT % 68.6 % (42.8-82.8); PLATELET COUNT 180 K/MM3 (134-434); RBC 4.09 M/mm3 (4.00-5.60); RDW 13.4 % (11.9-15.9); WHITE BLOOD COUNT 5.4 K/mm3 (4.0-10.0)
[2018-02-01 08:11] LABS: ALBUMIN 3.7 g/dl (3.4-5.0); ANION GAP 6 (8-16); BLOOD UREA NITROGEN 10 mg/dL (7-18); CALCIUM 9.6 mg/dL (8.5-10.1); CHLORIDE 103 mmol/L (98-107); CO2 31 mmol/L (21-32); CREATININE 0.8 mg/dL (0.7-1.3); GLUCOSE,RANDOM 93 mg/dL (74-106); POTASSIUM 4.6 mmol/L (3.5-5.1); SGOT/AST 136 U/L (15-37); SODIUM 140 mmol/L (136-145)
[2018-02-01 08:14] LABS: ALK PHOS 292 U/L (45-117); BILIRUBIN,TOTAL 1.5 mg/dL (0.2-1.0)
[2018-02-01 08:19] LABS: SGPT/ALT 612 U/L (12-78)
[2018-02-01] MEDS: POLYETHYLENE GLYCOL 3350 119 GM BTL PO SCH (10:00)
--- NOTE | 2018-02-01 13:11 | PN ---
Physical Exam: SUBJECTIVE: Patient seen and examined at bedside. No acute events overnight. Denies fever/chills, nausea/vomiting, pain. Admits to constipation, but does have BM. OBJECTIVE: Vital Signs Period Temp Pulse Resp BP Sys/Geiger Pulse Ox Last 24 Hr 97.6 F-98.8 F 54-74 18-20 126-154/71-87 98 GENERAL: NAD. AAOx3. Not jaundice. HEENT: AT/NC. icteric sclera. Neck supple, no thyromegaly/LAD. LUNGS: CTA B/L. No wheezes/rhonchi/rales appreciated. Symmetric chest rise. HEART: RRR. Normal S1, S2. No murmurs, rubs, gallops appreciated. ABDOMEN: Soft NT/ND. normoactive BS in all 4 Q's. No masses or abdominal bruits noted. MUSCULOSKELETAL: Limited ROM in L arm. 5/5 muscle strength in U/L B/L extremities. UPPER EXTREMITIES: 2+ pulses, warm, well-perfused. No cyanosis. No clubbing. No peripheral edema. LOWER EXTREMITIES: 2+ pulses, warm, well-perfused. No calf tenderness. No peripheral edema. NEUROLOGICAL: Normal Speech, normal gait. PSYCHIATRIC: Cooperative. Good eye contact. Appropriate mood and affect. SKIN: warm, dry. No rashes or lesions noted. Laboratory Results - last 24 hr 01/31/18 02/01/18 02/01/18 10:05 07:08 07:08 WBC 5.4 RBC 4.09 Hgb 13.5 Hct 39.6 D MCV 96.8 H MCH 33.0 MCHC 34.1 RDW 13.4 Plt Count 180 D MPV 10.2 Absolute Neuts (auto) 3.7 Neutrophils % 68.6 Lymphocytes % 22.4 Monocytes % 7.1 Eosinophils % 1.4 Basophils % 0.5 Nucleated RBC % 0 PTT (Actin FS) Sodium 140 Potassium 4.6 Chloride 103 Carbon Dioxide 31 Anion Gap 6 L BUN 10 Creatinine 0.8 Creat Clearance w eGFR > 60 Random Glucose 93 Calcium 9.6 Total Bilirubin 1.5 H AST 136 H D ALT 612 H Alkaline Phosphatase 292 H D Total Protein 8.0 Albumin 3.7 HIV 1&2 Antibody Screen Negative HIV P24 Antigen Negative Blood Type Antibody Screen 02/01/18 02/01/18 02/01/18 07:08 07:08 10:55 WBC RBC Hgb Hct MCV MCH MCHC RDW Plt Count MPV Absolute Neuts (auto) Neutrophils % Lymphocytes % Monocytes % Eosinophils % Basophils % Nucleated RBC % PTT (Actin FS) 34.5 Sodium Potassium Chloride Carbon Dioxide Anion Gap BUN Creatinine Creat Clearance w eGFR Random Glucose Calcium Total Bilirubin AST ALT Alkaline Phosphatase Total Protein Albumin HIV 1&2 Antibody Screen HIV P24 Antigen Blood Type O POSITIVE O POSITIVE Antibody Screen Negative Active Medications Generic Name Dose Route Start Last Admin Trade Name Amanda PRN Reason Stop Dose Admin Methadone HCl 60 mg 02/02/18 06:00 Dolophine - PO DAILY@0600 ANDRE Polyethylene Glycol 17 gm 02/01/18 10:00 02/01/18 10:00 Miralax (For Daily Use) - PO 17 grams DAILY ANDRE Administration Abd U/S: Contracted GB w/o evidence of calculi. No evidence of biliary ductal dilatation or acute pathology. U/A: +carline urine MRI abd: Few tiny gallstones at dome of GB. No evidence of cholecystitis. Elevated R hemidiaphragm of unknown etiology. ASSESSMENT/PLAN: 52M w/ pmhx heroine abuse (currently being treated at a Methadone clinic) presents today with tea-colored urine being admitted for workup of transaminitis. #transaminitis most likely 2/2 passage of gallstone; Pt clinically improving, denies vomiting, urine color is now yellow - ERCP scheduled for tomorrow, NPO after midnight; agreed with GI and surg to do ERCP - AST/ALT/AlkPhos trending down, patient is symptomatically improving #hx of heroin abuse; currently attending [facility] - continue Methadone 60 mg PO QD #constipation; Pt complains of hard stool - Miralax 17 gm PO QD #DVT ppx - Heparin 5000U SQ Q8, held for ERCP tomorrow FEN - No fluids given - recheck electrolytes in AM - CLD dispo - monitor on obs Visit type - Emergency Visit Emergency Visit: No - New Patient This patient is new to me today: No - Critical Care Critical Care patient: No
--- NOTE | 2018-02-01 15:11 | PN ---
Teaching Attending Note Name of Resident: Marleny Brooks ATTENDING PHYSICIAN STATEMENT I saw and evaluated the patient. I reviewed the resident's note and discussed the case with the resident. I agree with the resident's findings and plan as documented. SUBJECTIVE: No fever or chills . No abd pain , feels well . OBJECTIVE: NAD, slightly icteric sclera . Cv : RRR Lungs: CTAB ext : no edema Abd: soft, Nt, ND, NL BS ASSESSMENT AND PLAN: 52 y/o man with h/o heroin abuse on methadone treatment who presented with abd painand dark urine and was found to have elevated LFTs and jaundice 1- transaminitis : likely due to passed a stone. stable LFTS . - for ERCP tomorrow - clears for today . NPO at mid night - follow surgical Recs . 2- h/o heroin abuse. cont methadone hold DVT Px for ERCP tomorrow . ambulatory
[2018-02-02] MEDS ORDERED: METHADONE HCL 10 MG TABLET PO SCH (06:00)
[2018-02-02 08:28] LABS: BASO % 0.3 % (0-2.0); EOS % 1.1 % (0-4.5); HEMATOCRIT 37.8 % (35.4-49); LYMPH % 22.5 % (8-40); MCH 32.9 pg (25.7-33.7); MCHC 34.2 g/dl (32.0-35.9); NEUT % 69.1 % (42.8-82.8); PLATELET COUNT 166 K/MM3 (134-434); RBC 3.94 M/mm3 (4.00-5.60); RDW 13.5 % (11.9-15.9); WHITE BLOOD COUNT 6.1 K/mm3 (4.0-10.0)
[2018-02-02 09:10] LABS: ALBUMIN 3.7 g/dl (3.4-5.0); ANION GAP 8 (8-16); BILIRUBIN,TOTAL 1.3 mg/dL (0.2-1.0); BLOOD UREA NITROGEN 12 mg/dL (7-18); CALCIUM 9.2 mg/dL (8.5-10.1); CHLORIDE 101 mmol/L (98-107); CO2 29 mmol/L (21-32); CREATININE 0.8 mg/dL (0.7-1.3); GLUCOSE,RANDOM 90 mg/dL (74-106); POTASSIUM 3.9 mmol/L (3.5-5.1); SGOT/AST 87 U/L (15-37); SODIUM 138 mmol/L (136-145); TOT PROT 7.8 g/dl (6.4-8.2)
[2018-02-02 09:11] LABS: ALK PHOS 265 U/L (45-117)
[2018-02-02 09:13] LABS: SGPT/ALT 458 U/L (12-78)
[2018-02-02] MEDS: POLYETHYLENE GLYCOL 3350 119 GM BTL PO SCH (09:27)
[2018-02-02] MEDS ORDERED: PROPOFOL 20 ML ONE ×2 (15:16)
[2018-02-02] MEDS ORDERED: SUCCINYLCHOLINE CHLORIDE 200 MG/10 ML VIAL ONE (15:17)
[2018-02-02] MEDS ORDERED: PHENYLEPHRINE HCL 10 MG/1 ML SINGLE DOSE VIAL ONE (16:39)
[2018-02-02] MEDS ORDERED: ONDANSETRON 4 MG/2 ML VIAL ONE (16:39)
[2018-02-02] MEDS ORDERED: ceFAZolin SODIUM 1 GM VIAL IVPB ONE (16:50)
[2018-02-02] MEDS ORDERED: ceFAZolin SODIUM 1 GM VIAL ONE (16:51)
[2018-02-02] MEDS ORDERED: IOHEXOL 300 MG/ML INFUS..BTL IV ONE (17:50)
--- NOTE | 2018-02-02 18:35 | PN ---
Progress Note (short form) - Note Progress Note: GI Procedure NOte: Please see scanned ERCP report ( also placed into chart). Unable to cannulate and determine the cause of janudice and pain. Will attempt transfer to tertiary care center if the patient agrees.
[2018-02-02] MEDS ORDERED: LACTATED RINGERS SOLUTION 1,000 ML/1,000 ML INFUS.BAG IV SCH (18:45)
--- NOTE | 2018-02-02 18:52 | PN ---
Physical Exam: SUBJECTIVE: Patient seen and examined at bedside. No acute events overnight. Denies fever/chills, nausea/vomiting, pain. Admits to constipation, but does have BM. OBJECTIVE: Vital Signs Period Temp Pulse Resp BP Sys/Geiger Pulse Ox Last 24 Hr 97.8 F-98.7 F 53-81 12-20 115-134/68-81 96-100 GENERAL: NAD. AAOx3. Not jaundice. HEENT: AT/NC. icteric sclera. Neck supple, no thyromegaly/LAD. LUNGS: CTA B/L. No wheezes/rhonchi/rales appreciated. Symmetric chest rise. HEART: RRR. Normal S1, S2. No murmurs, rubs, gallops appreciated. ABDOMEN: Soft NT/ND. normoactive BS in all 4 Q's. No masses or abdominal bruits noted. MUSCULOSKELETAL: Limited ROM in L arm. 5/5 muscle strength in U/L B/L extremities. UPPER EXTREMITIES: 2+ pulses, warm, well-perfused. No cyanosis. No clubbing. No peripheral edema. LOWER EXTREMITIES: 2+ pulses, warm, well-perfused. No calf tenderness. No peripheral edema. NEUROLOGICAL: Normal Speech, normal gait. PSYCHIATRIC: Cooperative. Good eye contact. Appropriate mood and affect. SKIN: warm, dry. No rashes or lesions noted. Laboratory Results - last 24 hr 02/02/18 02/02/18 07:30 07:30 WBC 6.1 RBC 3.94 L Hgb 13.0 Hct 37.8 MCV 96.0 MCH 32.9 MCHC 34.2 RDW 13.5 Plt Count 166 MPV 10.0 Absolute Neuts (auto) 4.2 Neutrophils % 69.1 Lymphocytes % 22.5 Monocytes % 7.0 Eosinophils % 1.1 Basophils % 0.3 Nucleated RBC % 0 Sodium 138 Potassium 3.9 Chloride 101 Carbon Dioxide 29 Anion Gap 8 BUN 12 Creatinine 0.8 Creat Clearance w eGFR > 60 Random Glucose 90 Calcium 9.2 Total Bilirubin 1.3 H AST 87 H D ALT 458 H D Alkaline Phosphatase 265 H D Total Protein 7.8 Albumin 3.7 Active Medications Generic Name Dose Route Start Last Admin Trade Name Freq PRN Reason Stop Dose Admin Lactated Ringer's 1,000 ml in 1,000 mls @ 250 mls/hr 02/02/18 18:45 Lactated Ringers Solution IV 02/03/18 00:45 ASDIR ANDRE Lactated Ringer's 1,000 ml in 1,000 mls @ 200 mls/hr 02/03/18 00:45 Lactated Ringers Solution IV 02/03/18 06:45 ASDIR ANDRE Lactated Ringer's 1,000 ml in 1,000 mls @ 175 mls/hr 02/03/18 06:45 Lactated Ringers Solution IV 02/03/18 12:45 ASDIR ANDRE Lactated Ringer's 1,000 ml in 1,000 mls @ 150 mls/hr 02/03/18 12:45 Lactated Ringers Solution IV ASDIR ANDRE Methadone HCl 60 mg 02/02/18 06:00 02/02/18 05:50 Dolophine - PO 60 mg DAILY@0600 ANDRE Administration Polyethylene Glycol 17 gm 02/01/18 10:00 02/02/18 09:27 Miralax (For Daily Use) - PO Not Given DAILY ANDRE Abd U/S: Contracted GB w/o evidence of calculi. No evidence of biliary ductal dilatation or acute pathology. U/A: +carline urine MRI abd: Few tiny gallstones at dome of GB. No evidence of cholecystitis. Elevated R hemidiaphragm of unknown etiology. ASSESSMENT/PLAN: 52M w/ pmhx heroine abuse (currently being treated at a Methadone clinic) presents today with tea-colored urine being admitted for workup of transaminitis. #transaminitis most likely 2/2 passage of gallstone; Pt clinically improving, denies vomiting, urine color is now yellow - ERCP done today; follow up report - AST/ALT/AlkPhos trending down, patient is symptomatically improving #hx of heroin abuse; currently attending [facility] - continue Methadone 60 mg PO QD #constipation; Pt complains of hard stool - Miralax 17 gm PO QD #DVT ppx - Heparin 5000U SQ Q8, held for ERCP tomorrow FEN - No fluids given - recheck electrolytes in AM - CLD dispo - monitor on obs
--- NOTE | 2018-02-02 19:17 | DS ---
Physical Exam: SUBJECTIVE: Patient has acute complaints. OBJECTIVE: Vital Signs Period Temp Pulse Resp BP Sys/Geiger Pulse Ox Last 24 Hr 97.8 F-99.0 F 53-81 12-20 115-134/64-81 96-100 PHYSICAL EXAM GENERAL: NAD. AAOx3. Not jaundice. HEENT: AT/NC. icteric sclera. Neck supple, no thyromegaly/LAD. LUNGS: CTA B/L. No wheezes/rhonchi/rales appreciated. Symmetric chest rise. HEART: RRR. Normal S1, S2. No murmurs, rubs, gallops appreciated. ABDOMEN: Soft NT/ND. normoactive BS in all 4 Q's. No masses or abdominal bruits noted. MUSCULOSKELETAL: Limited ROM in L arm. 5/5 muscle strength in U/L B/L extremities. UPPER EXTREMITIES: 2+ pulses, warm, well-perfused. No cyanosis. No clubbing. No peripheral edema. LOWER EXTREMITIES: 2+ pulses, warm, well-perfused. No calf tenderness. No peripheral edema. NEUROLOGICAL: Normal Speech, normal gait. PSYCHIATRIC: Cooperative. Good eye contact. Appropriate mood and affect. SKIN: warm, dry. No rashes or lesions noted. LABS Laboratory Results - last 24 hr 02/02/18 02/02/18 07:30 07:30 WBC 6.1 RBC 3.94 L Hgb 13.0 Hct 37.8 MCV 96.0 MCH 32.9 MCHC 34.2 RDW 13.5 Plt Count 166 MPV 10.0 Absolute Neuts (auto) 4.2 Neutrophils % 69.1 Lymphocytes % 22.5 Monocytes % 7.0 Eosinophils % 1.1 Basophils % 0.3 Nucleated RBC % 0 Sodium 138 Potassium 3.9 Chloride 101 Carbon Dioxide 29 Anion Gap 8 BUN 12 Creatinine 0.8 Creat Clearance w eGFR > 60 Random Glucose 90 Calcium 9.2 Total Bilirubin 1.3 H AST 87 H D ALT 458 H D Alkaline Phosphatase 265 H D Total Protein 7.8 Albumin 3.7 HOSPITAL COURSE: Pt was admitted for jaundice and a 2 day hx of tea colored urine accompanied with abdominal pain. Upon admission, an abdominal ultrasound showed no gallstones and liver enzymes were elevated. Pt had persistent dark urine, some constipation, but denied abdominal pain, yellowing of his skin, or other bowel symptoms. An MRI was done that showed few tiny gallstones in the dome of the gallbladder. Pt was transferred to [facility] for further GI evaluation and ERCP with Dr. Isaac Robledo. Date of Admission:01/30/18 Date of Discharge: 02/02/18 Minutes to complete discharge: 35 Discharge Summary Reason For Visit: JAUNDICE,ELEVATED LIVER ENZYMES Condition: Improved - Instructions Diet, Activity, Other Instructions: Transfer to [facility] for GI evaluation of possible impacted stone in CBD and ERCP. MEDICAL RECOMMENDATIONS Please continue to take Methodone 60 mg once a day. Disposition: TRANSFER ACUTE CARE/OTHER HOSP This patient is new to me today: No Emergency Visit: No Critical Care patient: No - Discharge Referral Referred to [facility] Med [facility].C.: No
--- NOTE | 2018-02-02 19:23 | PN ---
Teaching Attending Note Name of Resident: Marleny Brooks ATTENDING PHYSICIAN STATEMENT I saw and evaluated the patient. I reviewed the resident's note and discussed the case with the resident. I agree with the resident's findings and plan as documented. SUBJECTIVE: No fever or chills. no abd pain. no n/V . OBJECTIVE: NAD, MMM Cv: RRR Lungs: CTAB ext : no edema Abd: soft, Nt, ND, NL BS ASSESSMENT AND PLAN: 52 y/o man with h/o heroin abuse on methadone treatment who presented with abd painand dark urine and was found to have elevated LFTs and jaundice 1- Transaminitis : ERCP today was unsuccessful to cannulate the CBD. ? impacted distal stone. - d/w Dr. Quintana. Accepted by Dr. Robledo for transfer to [facility] for ERCP. - will start the process 2- h/o heroin abuse. cont methadone. will work on transfer to [facility] for ERCP
--- NOTE | 2018-02-02 20:22 | PN ---
Progress Note (short form) - Note Progress Note: GI Addendum ( covering Dr. Mckeon/Gaby) : I spoke with Dr. Isaac Robledo at [facility] to discuss David's situation and he has accepted him for transfer. David is in agreement.
[2018-02-02 22:41] VITALS: BP 129/78; PULSE 73; TEMP 97.8
[2018-02-03] MEDS ORDERED: LACTATED RINGERS SOLUTION 1,000 ML/1,000 ML INFUS.BAG IV SCH ×3 (00:45→12:45)
== END 2018-02-02 22:50 | disposition short-term general hospital (02) ==
LOC: JER 11:07 → JERBED 15:42 → INTOOBSV 15:42 → J6S 01-31 00:32
PROVIDERS: ADMIT Internal Medicine; ATTEND Internal Medicine
PROC: 0F798DZ Dilation of Common Bile Duct with Intraluminal Device, Via Natural or Artificial Opening Endoscopic (ICD-10-PCS; principal; 2018-01-30)
PROC: 3E03329 Introduction of Other Anti-infective into Peripheral Vein, Percutaneous Approach (ICD-10-PCS; 2018-01-30)
PROC: 3E0337Z Introduction of Electrolytic and Water Balance Substance into Peripheral Vein, Percutaneous Approach (ICD-10-PCS; 2018-01-30)
DX: K83.1 Obstruction of bile duct (principal); R94.5 Abnormal results of liver function studies; F11.20 Opioid dependence, uncomplicated; R74.0 Nonspecific elevation of levels of transaminase and lactic acid dehydrogenase [LDH]; E80.6 Other disorders of bilirubin metabolism
CPT/HCPCS: 36415; 71046-TC-FY; 74183-TC; 74330-TC; 76705-TC; 80048; 80053; 80074; 80076; 80307; 81003; 82248; 82550; 82977; 83690; 83735; 84100; 85025; 85610; 85730; 86850; 86900; 86901; 87086; 87389; 93005; 93010; 94760; 96361; 96374; 96375; 99282-25; G0378; J1644; J7030

== ENCOUNTER 2023-08-20 10:48 | Emergency (ER) | payer OTHER ==
[2023-08-20 10:51] VITALS: BP 150/86; PULSE 82; RESP 18; TEMP 98; BMI 28.7
== END 2023-08-20 13:39 | disposition home or self-care (01) ==
LOC: JERFT 10:48
DX: R09.81 Nasal congestion (principal); R53.83 Other fatigue; R51.9 Headache, unspecified; R05.9 Cough, unspecified; M79.10 Myalgia, unspecified site; R50.9 Fever, unspecified; J10.1 Influenza due to other identified influenza virus with other respiratory manifestations; Z20.822 Contact with and (suspected) exposure to COVID-19
CPT/HCPCS: 0241U-QW; 71046-TC-FY; 99284-25

== ENCOUNTER 2024-11-16 01:48 | Emergency (ER) | payer OTHER ==
[2024-11-16 01:59] VITALS: BP 164/77; PULSE 106; RESP 19; TEMP 99; BMI 31.5
[2024-11-16] MEDS: ALBUTEROL SO4 2.5/IPRATROPIUM 0.5 INH SOL 3 ML VIAL.NEB. NEB ONE (04:28)
[2024-11-16] MEDS ORDERED: AZITHROMYCIN 500 MG TABLET ONE (06:12)
[2024-11-16] MEDS ORDERED: DEXAMETHASONE 4 MG TABLET (FP) ONE (06:12)
[2024-11-16] MEDS ORDERED: PSEUDOEPHEDRINE HCL 60 MG TABLET ONE (06:12)
[2024-11-16] MEDS: PSEUDOEPHEDRINE HCL 30 MG TABLET PO ONE (06:19)
[2024-11-16] MEDS: DEXAMETHASONE 4 MG TABLET (FP) PO ONE (06:19)
[2024-11-16] MEDS: AZITHROMYCIN 500 MG TABLET PO ONE (06:19)
== END 2024-11-16 06:20 | disposition home or self-care (01) ==
LOC: JER 01:48
PROC: 3E0F7GC Introduction of Other Therapeutic Substance into Respiratory Tract, Via Natural or Artificial Opening (ICD-10-PCS; principal; 2024-11-16)
DX: J18.9 Pneumonia, unspecified organism (principal); J32.9 Chronic sinusitis, unspecified; R06.02 Shortness of breath
CPT/HCPCS: 0241U-QW; 71046-TC-FY; 99284-25

== ENCOUNTER 2024-11-20 22:06 | Observation (INO) | payer OTHER ==
[2024-11-20 23:06] LABS: ABSOLUTE IMMATURE GRANULOCYTES 0.03 x10^3/uL (0.0-0.031); BASOPHILS # 0.01 x10^3/uL (0.01-0.08); HEMATOCRIT 39.9 % (40.1-51.0); HEMOGLOBIN 13.9 g/dL (13.7-17.5); MCHC 34.8 g/dl (32.3-36.5); MEAN CELL VOLUME 93.2 fl (79.0-92.2); MEAN PLT VOLUME 10.9 fl (9.4-12.4); MONOCYTE # 0.49 x10^3/uL (0.30-0.82); MONOCYTE % 4.4 % (5.3-12.2); PLATELET COUNT 295 x10^3/uL (163-337); RDW 12.3 % (12.2-16.1)
[2024-11-20] MEDS ORDERED: ACETAMINOPHEN 325 MG TABLET (FP) ONE (23:06)
[2024-11-20 23:22] LABS: INR 1.15 (0.83-1.09); PROTHROMBIN TIME (PATIENT) 12.6 SEC (9.7-13.0)
[2024-11-20] MEDS: LACTATED RINGERS SOLUTION 1000 ML INFUS.BAG IV ONE (23:28)
[2024-11-20] MEDS: ACETAMINOPHEN 500 MG TABLET (FP) PO ONE (23:28)
[2024-11-20 23:49] LABS: CALCIUM 9.8 mg/dL (8.5-10.1); MAGNESIUM 2.3 mg/dL (1.8-2.4); POTASSIUM 3.8 mmol/L (3.5-5.1)
[2024-11-20 23:50] LABS: BILIRUBIN,TOTAL 0.5 mg/dL (0.2-1); TOT PROT 8.6 g/dl (6.4-8.2)
[2024-11-21] MEDS ORDERED: ACETYLCYSTEINE 20% 200MG/ML 4 ML VIAL *FOR ORAL / INH USE ONLY ONE (01:03)
[2024-11-21] MEDS: ACETYLCYSTEINE 20% 200MG/ML 30 ML VIAL *FOR ORAL / INH USE ONLY NEB ONE (01:07)
[2024-11-21] MEDS: ALBUTEROL SO4 2.5/IPRATROPIUM 0.5 INH SOL 3 ML VIAL.NEB. NEB ONE (01:14)
[2024-11-21] MEDS ORDERED: hydrOXYzine PAMOATE 25 MG CAPSULE (FP) PO ONE (01:49)
[2024-11-21] MEDS: hydrOXYzine PAMOATE 25 MG CAPSULE (FP) PO ONE (01:52)
[2024-11-21 03:02] LABS: N-TERMINAL BNP 5.4 pg/ml (5-125)
[2024-11-21] MEDS ORDERED: ALBUTEROL SO4 2.5/IPRATROPIUM 0.5 INH SOL 3 ML VIAL.NEB. NEB PRN (03:41)
[2024-11-21 04:52] LABS: URINE BARBITURATES NEGATIVE (NEGATIVE)
[2024-11-21 04:53] LABS: COCAINE, UR NEGATIVE (NEGATIVE); OPIATES, URI NEGATIVE (NEGATIVE); PHENCYCLIDINE,URINE NEGATIVE (NEGATIVE); URINE BENZODIAZEPINES NEGATIVE (NEGATIVE)
[2024-11-21 05:15] LABS: METHADONE, UR POSITIVE (NEGATIVE); URINE AMPHETAMINES NEGATIVE (NEGATIVE)
[2024-11-21 05:24] VITALS: BMI 29.5
[2024-11-21] MEDS: LEVOTHYROXINE NA 25 MCG TABLET (FP) PO SCH (06:10)
[2024-11-21] MEDS ORDERED: ALBUTEROL SO4 0.083% IH SOL 2.5 MG/3 ML VIAL.NEB. NEB SCH (08:00)
[2024-11-21 09:29] LABS: ABSOLUTE IMMATURE GRANULOCYTES 0.04 x10^3/uL (0.0-0.031); BASOPHILS # 0.04 x10^3/uL (0.01-0.08); EOSINOPHIL % 0.6 % (0.8-7.0); EOSINOPHILS # 0.08 x10^3/uL (0.04-0.54); HEMATOCRIT 39.7 % (40.1-51.0); HEMOGLOBIN 13.6 g/dL (13.7-17.5); MCHC 34.3 g/dl (32.3-36.5); MEAN CELL VOLUME 95.4 fl (79.0-92.2); MEAN PLT VOLUME 10.7 fl (9.4-12.4); MONOCYTE # 0.94 x10^3/uL (0.30-0.82); MONOCYTE % 7.5 % (5.3-12.2); PLATELET COUNT 308 x10^3/uL (163-337); RDW 12.6 % (12.2-16.1)
[2024-11-21] MEDS ORDERED: methaDONE HCL 40 MG DISPERSABLE TABLET PO SCH (10:00)
[2024-11-21] MEDS ORDERED: PATIENT'S OWN MEDICATION (NON-FORMULARY) (Lisinopril/Hydrochlorothiazide [Lisinopril-Hctz PO SCH (10:00)
[2024-11-21 10:02] LABS: POTASSIUM 3.8 mmol/L (3.5-5.1)
[2024-11-21 10:12] LABS: CALCIUM 9.7 mg/dL (8.5-10.1)
[2024-11-21 10:13] LABS: ALBUMIN 3.8 g/dl (3.4-5.0); BLOOD UREA NITROGEN 23.3 mg/dL (7-18); MAGNESIUM 2.4 mg/dL (1.8-2.4)
[2024-11-21 10:16] LABS: PHOSPHOROUS 3.9 mg/dL (2.5-4.9)
[2024-11-21 10:17] LABS: BILIRUBIN,TOTAL 0.7 mg/dL (0.2-1); TOT PROT 8.1 g/dl (6.4-8.2)
[2024-11-21] MEDS: HYDROCHLOROTHIAZIDE 12.5 MG CAPSULE (FP) PO SCH (10:23)
[2024-11-21] MEDS: LISINOPRIL 10 MG TABLET PO SCH (10:24)
[2024-11-21] MEDS: predniSONE 20 MG TABLET (UD) PO SCH (10:32)
[2024-11-21] MEDS ORDERED: ALBUTEROL SO4 0.083% IH SOL 2.5 MG/3 ML VIAL.NEB. NEB PRN (12:03)
[2024-11-21] MEDS ORDERED: ALBUTEROL SO4 2.5/IPRATROPIUM 0.5 INH SOL 3 ML VIAL.NEB. NEB SCH (12:15)
[2024-11-21] MEDS: ENOXAPARIN NA (PORCINE) 40 MG/0.4 ML DISP.SYRIN SQ SCH (13:10)
[2024-11-21] MEDS: BUDESONIDE/FORMETEROL FUMARATE 160/4.5 mcg INHALER IH SCH (13:33)
[2024-11-21 14:04] VITALS: BP 120/76; PULSE 108; RESP 20; TEMP 97.1
[2024-11-21] MEDS ORDERED: methylPREDNISolone NA SUCC 40 MG/1 ML VIAL IVPUSH SCH (18:00)
== END 2024-11-21 15:45 | disposition home or self-care (01) ==
LOC: JER 22:06 → JERBED 11-21 02:18 → UNDOADMOB 11-21 02:18 → INTOOBSV 11-21 03:22 → OBSVTOIN 11-21 03:22 → J5S 11-21 04:53 → JERBED 11-21 04:53 → J5S 11-21 09:40 → JERBED 11-21 09:40
PROVIDERS: ADMIT Internal Medicine; ATTEND Internal Medicine
PROC: 3E0F7GC Introduction of Other Therapeutic Substance into Respiratory Tract, Via Natural or Artificial Opening (ICD-10-PCS; principal; 2024-11-21)
PROC: 3E023GC Introduction of Other Therapeutic Substance into Muscle, Percutaneous Approach (ICD-10-PCS; 2024-11-21)
DX: J98.01 Acute bronchospasm (principal); F11.20 Opioid dependence, uncomplicated; I10 Essential (primary) hypertension; E03.9 Hypothyroidism, unspecified; F17.210 Nicotine dependence, cigarettes, uncomplicated; F19.99 Other psychoactive substance use, unspecified with unspecified psychoactive substance-induced disorder
CPT/HCPCS: 0241U-QW; 36415; 71045-TC-FY; 71275-TC; 80053; 80307; 83735; 83880; 84100; 84439; 84443; 84484; 85025; 85379; 85610; 85730; 93005; 93010; 94640; 96372; 99285-25; G0378